=== PATIENT | male | born 1970 | race Caucasian/White ===

== ENCOUNTER 2025-04-05 19:34 | Emergency (ER) | payer BC, MEDICAID ==
[~2025-04-05] VITALS: Ht 175.3 cm; Wt 68.0 kg
[2025-04-05 19:39] VITALS: O2SAT 98
[2025-04-05] MEDS: IBUPROFEN 800MG TABLET PO ONE (20:43)
[2025-04-05] MEDS: OXYCODONE HCL/ACETAMINOPHEN 5/325MG TABLET PO ONE (20:44)
[2025-04-05] MEDS ORDERED: P50 MT (23:34)
[2025-04-05] MEDS ORDERED: HYDR-4001 MT (23:34)
[2025-04-05] MEDS ORDERED: IBUP-1525 MT (23:34)
[2025-04-06 00:05] VITALS: BP 124/79; PULSE 63; RESP 13; TEMP 37.1; O2SAT 99
== END 2025-04-06 00:10 | disposition home or self-care (01) ==
LOC: ER 19:34
DX: M54.32 Sciatica, left side (principal); M54.31 Sciatica, right side; F17.200 Nicotine dependence, unspecified, uncomplicated; M47.816 Spondylosis without myelopathy or radiculopathy, lumbar region; M51.372 Other intervertebral disc degeneration, lumbosacral region with discogenic back pain and lower extremity pain; Z79.899 Other long term (current) drug therapy
CPT/HCPCS: 72110; 99285; Z7610 ×3; A4606